=== PATIENT | female | born 1950 | race Caucasian/White ===

== ENCOUNTER → 2016-11-10 | Outpatient (REF) | LOC: ZLAB.WCH 11:50 | DX: Z01.89 Encounter for other specified special examinations (principal) ==

== ENCOUNTER → 2016-12-29 | Outpatient (CLI) | payer MEDICARE, MEDICAID | LOC: BHSO 13:03 | DX: F20.89 Other schizophrenia (principal) ==

== ENCOUNTER → 2017-01-20 | Outpatient (REF) | LOC: ZLAB.WCH 09:01 | DX: Z01.89 Encounter for other specified special examinations (principal) ==

== ENCOUNTER → 2017-02-16 | Outpatient (REF) | LOC: ZLAB.WCH 08:54 | DX: Z01.89 Encounter for other specified special examinations (principal) ==

== ENCOUNTER → 2017-05-06 | Outpatient (CLI) | payer MEDICARE, MEDICAID | LOC: BHSO 12:41 | DX: F20.9 Schizophrenia, unspecified (principal) ==

== ENCOUNTER → 2017-05-18 | Outpatient (REF) | LOC: ZLAB.WCH 09:02 | DX: Z01.89 Encounter for other specified special examinations (principal) ==

== ENCOUNTER → 2017-10-01 | Outpatient (REF) | LOC: ZLAB.WCH 08:52 | DX: Z01.89 Encounter for other specified special examinations (principal) ==

== ENCOUNTER → 2017-11-01 | Outpatient (CLI) | payer MEDICARE, MEDICAID | LOC: BHSO 13:44 | DX: F25.0 Schizoaffective disorder, bipolar type (principal) | CPT/HCPCS: G0463 ==

== ENCOUNTER → 2017-12-30 | Outpatient (REF) | LOC: ZLAB.WCH 17:54 | DX: Z01.89 Encounter for other specified special examinations (principal) ==

== ENCOUNTER → 2018-03-02 | Outpatient (REF) | LOC: ZLAB.WCH 08:37 | DX: Z01.89 Encounter for other specified special examinations (principal) ==

== ENCOUNTER → 2018-04-11 | Outpatient (REF) | LOC: ZLAB.WCH 16:08 | DX: Z01.89 Encounter for other specified special examinations (principal) ==

== ENCOUNTER → 2018-05-04 | Outpatient (CLI) | payer MEDICARE, MEDICAID | LOC: BHSO 13:54 | DX: F25.0 Schizoaffective disorder, bipolar type (principal) | CPT/HCPCS: G0463 ==

== ENCOUNTER → 2018-09-05 | Outpatient (REF) | LOC: ZLAB.WCH 08:28 | DX: Z01.89 Encounter for other specified special examinations (principal) ==

== ENCOUNTER → 2018-10-19 | Outpatient (REF) | LOC: ZLAB.WCH 09:33 | DX: Z01.89 Encounter for other specified special examinations (principal) ==

== ENCOUNTER → 2018-11-02 | Outpatient (CLI) | payer MEDICARE, MEDICAID | LOC: BHSO 13:54 | DX: F06.32 Mood disorder due to known physiological condition with major depressive-like episode (principal) | CPT/HCPCS: G0463 ==

== ENCOUNTER → 2018-12-01 | Outpatient (REF) | LOC: ZLAB.WCH 15:58 | DX: Z01.89 Encounter for other specified special examinations (principal) ==

== ENCOUNTER → 2019-03-07 | Outpatient (REF) | LOC: ZLAB.WCH 17:23 | DX: Z01.89 Encounter for other specified special examinations (principal) ==

== ENCOUNTER → 2019-04-12 | Outpatient (CLI) | payer MEDICARE, MEDICAID | LOC: BHSO 13:16 | DX: F25.0 Schizoaffective disorder, bipolar type (principal) | CPT/HCPCS: G0463 ==

== ENCOUNTER → 2019-07-12 | Outpatient (CLI) | payer MEDICARE, MEDICAID | LOC: BHSO 13:00 | DX: F25.0 Schizoaffective disorder, bipolar type (principal) | CPT/HCPCS: G0463 ==

== ENCOUNTER → 2020-01-09 | Outpatient (CLI) | payer MEDICARE, MEDICAID | LOC: MC.RAD 12:41 | DX: N63.20 Unspecified lump in the left breast, unspecified quadrant (principal) | CPT/HCPCS: G0279 ==

== ENCOUNTER → 2020-03-20 | Outpatient (CLI) | payer MEDICARE, MEDICAID | LOC: BHSO 13:20 ==

== ENCOUNTER → 2021-05-27 | Outpatient (CLI) | payer MEDICARE, MEDICAID ==
[~2021-05-27] MED LIST: ARIMIDEX1 MG PO; ATIVAN 1MG T1 MG/TAB PO; ATIVAN 2MG/ML2 MG/ML IJ; CLOZAPINE200 MG PO; DULCOLAX S10 MG/SUPP RC; FLONASEALLERGY NS; GLUCOPHAGE1000 MG PO; IPRATROPIUM BROM3 M1 IH; LAMICTAL150 MG PO; MIRALAX PA17 GM/Dose PO; MUCUS RELIEF200 MG PO; NAMENDA XR 7 PO; NYSTATIN POWDER15 GM TOP; PRISTIQ100 MG PO; PROVENTIL0.09 MG/A1 IH; RISPERDAL 1M1 MG/TAB PO; SENOKOT S 50 MG1 TAB PO; TESSALON P100 MG/CAP PO; TIROSINT75 MC1 PO; TYLENOL 500MG500 MG PO; ZOCOR 10MG10 MG PO; [UNRECOGNIZED DRUG - OTHER] TP
== END ==
LOC: MC.RAD 13:45
DX: Z01.818 Encounter for other preprocedural examination (principal); N63.20 Unspecified lump in the left breast, unspecified quadrant; Z96.89 Presence of other specified functional implants

== ENCOUNTER 2021-05-28 08:21 | Day surgery (SDC) | payer MEDICARE, MEDICAID ==
[~2021-05-28] VITALS: Ht 165.1 cm; Wt 81.1 kg
[2021-05-28] VITALS (7 sets, daily range): BP systolic 112–138; BP diastolic 58–77; PULSE 77–92; TEMP 97.2
[2021-05-28 09:14] LABS: ALBUMIN 4.2 gm/dL (3.5-5.0); BILIRUBIN,TOTAL 0.4 mg/dL (0.0-1.0); CALCIUM 9.4 mg/dL (8.4-10.2); CREATININE, serum 0.94 (0.52-1.25); TOTAL PROTEIN 7.1 gm/dL (6.4-8.2)
[2021-05-28 09:15] LABS: BASO # 0.1 (0.0-0.2); BASO % 0.7 % (0.0-2.0); EOS # 0.3 (0.0-0.7); EOS % 4.5 % (0-4.0); GRAN # 4.4 (1.4-6.5); GRAN % 62.9 % (42.2-75.2); LYMPH # 1.6 (1.2-3.4); LYMPH % 23.1 % (20.0-51.0); MEAN CELL VOLUME 95 fl (80.0-100.0); MEAN CORPUSCULAR HEMOGLOBIN 31 pg (27.0-31.0); MEAN CORPUSCULAR HGB CONC 33 g/dl (33.0-37.0); MEAN PLATELET VOLUME 9.7 fl (7.4-10.4); MONO # 0.6 (0.1-0.6); MONO % 8.4 % (1.7-9.3); PLATELET COUNT 313 K/mm3 (130-400); RED BLOOD COUNT 3.87 M/mm3 (4.10-5.30); REDCELL DISTRIBUTION WIDTH-CV 13.2 % (11.5-14.5)
[2021-05-28 09:43] LABS: HEMATOCRIT 36.8 % (37.0-47.0)
[2021-05-28] MEDS ORDERED: ARIMIDEX1 MG PO (09:44)
[2021-05-28] MEDS ORDERED: ATIVAN 1MG T1 MG/TAB PO (09:45)
[2021-05-28] MEDS ORDERED: ATIVAN 2MG/ML2 MG/ML IJ (09:45)
[2021-05-28] MEDS ORDERED: CLOZAPINE200 MG PO ×2 (09:46→09:47)
[2021-05-28] MEDS ORDERED: DULCOLAX S10 MG/SUPP RC (09:48)
[2021-05-28] MEDS ORDERED: IPRATROPIUM BROM3 M1 IH (09:48)
[2021-05-28] MEDS ORDERED: FLONASEALLERGY NS (09:49)
[2021-05-28] MEDS ORDERED: MUCUS RELIEF200 MG PO (09:50)
[2021-05-28] MEDS ORDERED: LAMICTAL150 MG PO (09:51)
[2021-05-28] MEDS ORDERED: NAMENDA XR 7 PO (09:52)
[2021-05-28] MEDS ORDERED: GLUCOPHAGE1000 MG PO ×2 (09:52→09:53)
[2021-05-28] MEDS ORDERED: MIRALAX PA17 GM/Dose PO (09:54)
[2021-05-28] MEDS ORDERED: [UNRECOGNIZED DRUG - OTHER] TP (09:55)
[2021-05-28] MEDS ORDERED: NYSTATIN POWDER15 GM TOP (09:55)
[2021-05-28] MEDS ORDERED: PRISTIQ100 MG PO (09:56)
[2021-05-28] MEDS ORDERED: PROVENTIL0.09 MG/A1 IH (09:57)
[2021-05-28] MEDS ORDERED: RISPERDAL 1M1 MG/TAB PO (09:57)
[2021-05-28] MEDS ORDERED: ZOCOR 10MG10 MG PO (09:58)
[2021-05-28] MEDS ORDERED: SENOKOT S 50 MG1 TAB PO (09:58)
[2021-05-28] MEDS ORDERED: TIROSINT75 MC1 PO (09:59)
[2021-05-28] MEDS ORDERED: TESSALON P100 MG/CAP PO (10:00)
[2021-05-28] MEDS ORDERED: TYLENOL 500MG500 MG PO (10:01)
--- NOTE | 2021-05-28 11:04 | NUR ---
Patient returns to room 2 per cart from PACU accompanied by Dewey RAMOS. Arouses to verbal stimuli. Room air sats 85-90. Has snoring respirations. Encouraged to take deep breaths. Placed on simple mask at 5L. Exofin dressing dry on the left breast. IV fluids infusing and site is free of redness. Siderails up x2 and call light in reach. Will continue to observe.
--- NOTE | 2021-05-28 11:19 | NUR ---
Continues to rest with oxygen mask in place at 5L. Siderails up xx2.
--- NOTE | 2021-05-28 11:34 | NUR ---
Resting with eyes closed on offers no complaints. Oxygen remains on.
--- NOTE | 2021-05-28 11:51 | NUR ---
Continues to rest with eyes closed and remains on oxygen at 5L per mask.
--- NOTE | 2021-05-28 12:04 | NUR ---
More awake and taking sips of water. Oxygen removed and room air sats 94%.
--- NOTE | 2021-05-28 12:34 | NUR ---
Sitting up on cart and is sipping on Pepsi and eating pudding. Denies pain or nausea when asked.
--- NOTE | 2021-05-28 13:00 | NUR ---
Ambulatory to the bathroom. Gait steady. IV to INT.
--- NOTE | 2021-05-28 13:30 | NUR ---
Patient was able to void. INT needle discontinued. Given Sunol to eat. Report was called to Rachael RAMOS in [facility]. Patient dressed.
--- NOTE | 2021-05-28 13:45 | NUR ---
Patient dismissed to home driven by wheelchair van and dismissal instructions folder given to cdl driver to be passed on to nurse recieving patient.
== END 2021-05-28 13:45 | disposition home or self-care (01) ==
LOC: SDCO 08:21
PROVIDERS: Surgery
DX: C50.412 Malignant neoplasm of upper-outer quadrant of left female breast (principal); E03.9 Hypothyroidism, unspecified; E78.5 Hyperlipidemia, unspecified; E11.9 Type 2 diabetes mellitus without complications; I10 Essential (primary) hypertension; F20.9 Schizophrenia, unspecified; F32.9 Major depressive disorder, single episode, unspecified; F41.9 Anxiety disorder, unspecified; F03.90 Unspecified dementia, unspecified severity, without behavioral disturbance, psychotic disturbance, mood disturbance, and anxiety; Z98.51 Tubal ligation status; Z79.899 Other long term (current) drug therapy; Z79.890 Hormone replacement therapy; Z79.84 Long term (current) use of oral hypoglycemic drugs; Z80.42 Family history of malignant neoplasm of prostate; Z80.3 Family history of malignant neoplasm of breast
CPT/HCPCS: A4648; J0690; J2704; J3010; J7120

== ENCOUNTER 2024-07-09 19:15 | Emergency (ER) | payer MEDICARE ==
[~2024-07-09] VITALS: Ht 165.1 cm; Wt 75.9 kg
[2024-07-09 19:16] VITALS: TEMP 98.3
[2024-07-09] MEDS ORDERED: LR 1,000 ML IV ONE (19:45)
[2024-07-09] MEDS ORDERED: NS 1,000 ML IV ONE (19:45)
[2024-07-09 20:01] LABS: BASO # 0.1 K/mm3 (0.0-0.2); BASO % 0.8 % (0.0-2.0); EOS # 0.1 K/mm3 (0.0-0.7); EOS % 1.1 % (0.0-4.0); HEMOGLOBIN 10.6 g/dl (12.5-16.0); LYMPH # 1.7 K/mm3 (1.2-3.4); LYMPH % 15.7 % (20.0-51.0); MEAN CELL VOLUME 99 fl (80.0-100.0); MEAN CORPUSCULAR HEMOGLOBIN 31 pg (27-31); MEAN CORPUSCULAR HGB CONC 32 g/dl (33.0-37.0); MONO # 0.6 K/mm3 (0.1-0.6); MONO % 6.1 % (1.7-9.3); PLATELET COUNT 335 K/mm3 (130-400); RED BLOOD COUNT 3.38 M/mm3 (4.10-5.30); REDCELL DISTRIBUTION WIDTH-CV 13.3 % (11.5-14.5)
[2024-07-09 20:04] LABS: HEMATOCRIT 33.4 % (37.0-47.0)
[2024-07-09 20:20] LABS: ALBUMIN 3.8 g/dL (3.4-4.8); BILIRUBIN,TOTAL 0.2 mg/dL (0.2-1.2); C-REACTIVE PROTEIN 0.08 mg/dL (0.00-0.50); CALCIUM 9.5 mg/dL (8.4-10.2); CREATININE, serum 1.13 mg/dL (0.57-1.11); POTASSIUM 4.5 mEq/L (3.5-4.5); TOTAL PROTEIN 6.6 g/dl (6.2-8.1)
[2024-07-09 20:29] LABS: TROPONIN-I 0.014 ng/mL (0.00-0.033)
[2024-07-09 20:44] LABS: COLLECTION METHOD CATHETER
[2024-07-09 20:49] LABS: URINE APPEARANCE CLEAR (CLEAR/HAZY); URINE BLOOD NEGATIVE (NEGATIVE); URINE COLOR YELLOW (YELLOW); URINE GLUCOSE NEGATIVE (NEGATIVE); URINE KETONE TRACE (NEGATIVE); URINE NITRATE NEGATIVE (NEGATIVE); URINE PROTEIN(semi-quant) 1+ (NEGATIVE); URINE UROBILINOGEN 0.2 E.U/dL (0.2-1.0)
[2024-07-09 21:05] LABS: MUCOUS PRESENT (NOT PRESENT); SQUAMOUS EPITHELIAL NONE SEEN /hpf (0-10); URINE BACTERIA RARE /hpf (NONE SEEN); URINE RBC NONE SEEN /hpf (0-2); URINE WBC None Seen /hpf (0-2)
[2024-07-10 01:35] VITALS: BP 166/92; PULSE 88
== END 2024-07-10 01:35 | disposition home or self-care (01) ==
LOC: COL.ER 19:15
PROVIDERS: Nurse Practitioner
DX: R41.82 Altered mental status, unspecified (principal); F20.0 Paranoid schizophrenia
CPT/HCPCS: J7030